=== PATIENT | female | born 1995 | race Caucasian/White ===

== ENCOUNTER → 2018-08-13 12:34 | Outpatient (CLI) | payer MEDICAID ==
[2018-08-13 13:28] LABS: APPEARANCE CLEAR (CLEAR); BILIRUBIN NEGATIVE (NEGATIVE); COLOR YELLOW (YELLOW); GLUCOSE NEGATIVE (NEGATIVE); KETONE NEGATIVE (NEGATIVE); NITRITE NEGATIVE (NEGATIVE); PROTEIN NEGATIVE (NEGATIVE); UROBILINOGEN NORMAL (NORMAL)
== END | disposition home or self-care (01) ==
LOC: D.LDO 12:34
PROVIDERS: ATTEND Obstetrics & Gynecology
DX: O26.899 Other specified pregnancy related conditions, unspecified trimester (principal); Z3A.00 Weeks of gestation of pregnancy not specified; R10.9 Unspecified abdominal pain

== ENCOUNTER → 2018-08-22 07:46 | Outpatient (CLI) | payer MEDICAID ==
[2018-08-22 08:34] LABS: APPEARANCE CLEAR (CLEAR); BILIRUBIN NEGATIVE (NEGATIVE); COLOR YELLOW (YELLOW); GLUCOSE NEGATIVE (NEGATIVE); KETONE NEGATIVE (NEGATIVE); NITRITE NEGATIVE (NEGATIVE); PROTEIN 1+ mg/dL (NEGATIVE); SPECIFIC GRAVITY 1.005 (1.005-1.020); UROBILINOGEN NORMAL (NORMAL)
[2018-08-22 08:36] LABS: BACTERIA MANY /hpf (NONE SEEN); EPITHELIAL CELLS 0-5 /hpf (0-5)
== END | disposition home or self-care (01) ==
LOC: D.LDO 07:46
PROVIDERS: ATTEND Obstetrics & Gynecology
DX: O26.892 Other specified pregnancy related conditions, second trimester (principal); Z3A.21 21 weeks gestation of pregnancy

== ENCOUNTER → 2018-12-17 14:04 | Outpatient (CLI) | payer MEDICAID ==
[~2018-12-17 14:04] MED LIST: BACTRIM 400-801 TAB PO; FERROUS SULFAT325 MG PO; PEPCID AC20 MG PO; PERCOCET 5-3251 TAB PO
[2018-12-17 14:33] LABS: BASOPHILS 0.1 % (0-2); EOSINOPHILS 0.4 % (0-7); HEMATOCRIT 27.8 % (36.0-48.0); IMMATURE GRANULOCYTES 0.1 % (0-5); LYMPHOCYTES 13.3 % (15-50); MCH 25.5 pg (26.0-34.0); MCHC 32.4 g/dL (31.0-37.0); MCV 78.8 fL (80.0-100.0); MEAN PLATELET VOLUME 11.9 fL (7.4-10.4); MONOCYTES 6.6 % (2-11); NEUTROPHILS 79.5 % (40-80); PLATELET COUNT 163 10x3/uL (130-400); RBC 3.53 10x6/uL (4.00-5.40); RDW 14.3 % (11.5-14.5); WBC 8.3 10x3/uL (4.8-10.8)
[2018-12-17 14:59] LABS: ALBUMIN 2.2 g/dL (3.4-5.0); ALKALINE PHOSPHATASE 149 U/L (46-116); ALT (SGPT) 12 U/L (10-68); BILIRUBIN - INDIRECT 0.16 mg/dL (0.00-1.00); CALC OSMOLALITY 277 mosm/kg (275-300); CALCIUM 7.9 mg/dL (8.5-10.1); CARBON DIOXIDE 24.4 mmol/L (21.0-32.0); CHLORIDE - SERUM 107 mmol/L (98-107); CREATININE - SERUM 0.7 mg/dL (0.6-1.3); GLUCOSE 103 mg/dL (74-106); POTASSIUM - SERUM 4.1 mmol/L (3.5-5.1); PROTEIN - SERUM 5.5 g/dL (6.4-8.2); SODIUM 140 mmol/L (136-145); UREA NITROGEN 11 mg/dL (7-18); URIC ACID 6.2 mg/dL (2.6-7.2); eGFR NON AFRICAN AMERICAN > 90 mL/min (90-120)
[2018-12-17 15:10] LABS: BILIRUBIN - DIRECT 0.04 mg/dL (0.00-0.30)
[2018-12-18 17:45] LABS: PROTEIN - URINE 27.6 mg/dL (0.0-11.9)
[2018-12-24 13:34] VITALS: BMI 34.4
== END | disposition home or self-care (01) ==
LOC: D.LDO 14:04
PROVIDERS: ATTEND Obstetrics & Gynecology
DX: O26.90 Pregnancy related conditions, unspecified, unspecified trimester (principal)

== ENCOUNTER 2018-12-24 12:59 | Inpatient (IN) | payer MEDICAID ==
[~2018-12-24] VITALS: Ht 157.5 cm; Wt 85.3 kg
[2018-12-24] MEDS ORDERED: FERROUS SULFAT325 MG PO (13:33)
[2018-12-24] MEDS ORDERED: PEPCID AC20 MG PO (13:33)
[2018-12-24 13:34] VITALS: BP 122/72; Ht 157.5 cm; Wt 85.3 kg
[2018-12-24 14:02] LABS: HEMATOCRIT 30.4 % (36.0-48.0); HEMOGLOBIN 9.7 g/dL (12-16); MCH 25.7 pg (26.0-34.0); MCHC 31.9 g/dL (31.0-37.0); MCV 80.6 fL (80.0-100.0); MEAN PLATELET VOLUME 12.1 fL (7.4-10.4); RBC 3.77 10x6/uL (4.00-5.40); RDW 14.5 % (11.5-14.5); WBC 10.6 10x3/uL (4.8-10.8)
[2018-12-25] VITALS (9 sets, daily range): BP systolic 110–125; BP diastolic 58–72
[2018-12-25 07:13] LABS: RAPID PLASMA REAGIN Non Reactive (Non Reactive)
--- NOTE | 2018-12-25 15:25 | NUR ---
PT FUDUS IS MIDLINE AND FIRM AT [facility]. BLEEDING IS SCANT RUBRA. WILL CONTINUE TO MONITOR
--- NOTE | 2018-12-25 16:15 | NUR ---
to room 1278 via bed from rr. pt awake and alert. color sl pale. verbal responses appro to questions. rates pain a 1-2 on scale of 0-10. states that med given in rr has helped alot. drinking on clear liq. vs done. iv of 1000cc lr with 10 units pitocin infusing and placed on pump at 125cc/hr. abd dressing intact- clean and dry. noted that pad from rr saturated - lochia -no clots. fundus massage -u1 and firm. no lochia with massage. able to moves legs about. ice cap to incision. bella cath with cloudy yellow urine- 100cc emptied from container. scd's on and connected to pump.
--- NOTE | 2018-12-25 16:32 | NUR ---
family at bedside. pt looking at cell phone.
--- NOTE | 2018-12-25 16:56 | NUR ---
rates pain a 1 on scale of 0-10. denies wanting pain med at this time. anjum pad without lochia. drinking clear liquids at this time.
--- NOTE | 2018-12-25 17:15 | NUR ---
fundus u1/firm. anjum pad cd&i. talking with visitors.
--- NOTE | 2018-12-25 17:35 | NUR ---
report of urine output to dr child -dr hardwick in unit- no new orders at this time.
--- NOTE | 2018-12-25 17:36 | NUR ---
requesting pain medication- rates pain a 3-4 on scale of 0-10.
--- NOTE | 2018-12-25 17:58 | NUR ---
baby to room. family at bedside.
--- NOTE | 2018-12-25 17:58 | NUR ---
small lochia noted on pad- fundus u1/firm.
--- NOTE | 2018-12-25 19:10 | NUR ---
REPORT TO PM SHIFT.
[2018-12-25 19:30] LABS: BASOPHILS 0.1 % (0-2); EOSINOPHILS 0 % (0-7); HEMOGLOBIN 7.8 g/dL (12-16); IMMATURE GRANULOCYTES 0.5 % (0-5); LYMPHOCYTES 2.9 % (15-50); MCH 25.4 pg (26.0-34.0); MCHC 31.2 g/dL (31.0-37.0); MCV 81.4 fL (80.0-100.0); MEAN PLATELET VOLUME 11.9 fL (7.4-10.4); MONOCYTES 5.7 % (2-11); NEUTROPHILS 90.8 % (40-80); PLATELET COUNT 168 10x3/uL (130-400); RBC 3.07 10x6/uL (4.00-5.40)
[2018-12-25 19:37] LABS: WBC 19.1 10x3/uL (4.8-10.8)
--- NOTE | 2018-12-25 20:00 | NUR ---
REC'D PT AA&O X 4 IN HIGH VELAZQUEZ'S. PAIN AND NEEDS ASSSESED. PT REPORTS PAIN 2/10. SHIFT ASSESSMENT COMPLETED. SEE FLOWSHEET.
--- NOTE | 2018-12-25 21:17 | NUR ---
DR. MOORE WAS CALLED AND INFORMED OF ORDERED H/H RESULTS THAT WERE ORDERED. INFORMED MD OF CURRENT RESULTS AND STATUS ON ADMIT. MD STATES NO FURTHER MANAGEMENT NEEDED AT THIS TIME.
--- NOTE | 2018-12-25 21:40 | NUR ---
THIS RN TO BEDSIDE TO ADMIN SCHEDULED TORADOL. PT AA&O X 4. RATES PAIN 05/10. PERIPAD W/SMALL LOCHIA NOTED. CLEAN PAD PLACED. [facility] MUG FILLED W/WATER AND PLACED AT BEDSIDE W/TEACHING. APPROX 50ML URINE NOTED IN UROMETER AT THIS TIME AND DUMPED TO AGEE BAG. PT DENIES NEEDS.
--- NOTE | 2018-12-25 22:04 | NUR ---
AMPICILLIAN 2GM UP TO INFUSE AT 200ML/HR.
--- NOTE | 2018-12-25 23:24 | NUR ---
PT RINGS CALL LIGHT TO REPORT IV PUMP SOUNDING. THIS RN TO BEDSIDE. APPROX 200ML REMAINING IN IV BAG. PUMP REPROGRAMMED. PT PAIN AND NEEDS ASSESED. PT REPORTS PAIN 04/09. DENIES NEEDS. PT HAS DRANK APPROX 200ML WAER. APPROX 75ML URINE NOTED IN UROMETER AND DUMPED. [facility] MUG REFILLED W/WATER AND PT ENCOURAGED TO CONTINUE DRINKING. PT AGREEBLE. NO NEEDS VOICED.
[2018-12-26 00:20] VITALS: BP 129/85
--- NOTE | 2018-12-26 00:30 | NUR ---
THIS RN TO BEDSIDE TO NORMALZIE PATIENT. AGEE CATH D/C'D INTACT. APPROX 80ML URINE NOTED IN UROMETER. PERIPAD W/SMALL LOCHIA CHANGED AND NEW PAD PLACED. PT CURRENTLY RATES ABD PRESSURE PAIN /. NS W/20 UNIT PITOCIN DISCONTINUED AT THIS TIME. BAG OF 1000ML NS UP TO INFUSE AT 100ML/HR. PT EDUCATED ON PO PAIN MEDICATION AND GETTING UP TO VOID AND AMBULATE. PT IS AGREEABLE. PT MEDICATED W/1 PERCOCET 5/325MG TAB AT THIS TIME. PT PERFORMS I.S X 3 WITH GOOD EFFORT AND REPOSITIONS SELF IN BED.PT COUGHS W/MODERATE EFFORT. DENIES NEEDS AT THIS TIME. ICE CAP REFRESHENED AND PLACED OVER INCISION SITE. [facility] MUG FILLED W/WATER AND PT ENCOURGED TO CONTINUE DRINKING.
--- NOTE | 2018-12-26 02:36 | NUR ---
LAB CALLS AND SPEAKS W/J BRYAN ORTA TO REPORT PT HAS GRAM (+) GLORIA BLOOD CULTURE FROM LEFT AC.
[2018-12-26 04:00] VITALS: BP 128/82
--- NOTE | 2018-12-26 04:00 | NUR ---
THIS RN TO BEDSIDE ADMIN OF AMPICILLIN PER ORDERS. PT AA&O X 4 HOLDING . PAIN AND NEEDS ASSESSED. PT REPORTS PAIN 2/10 AN DENIES NEEDS AT PRESENT. FOB TO FEED INFANT AT THIS TIME.
--- NOTE | 2018-12-26 04:13 | NUR ---
pt up to sitting on side of bed w/out assistance. ambulatory to br w/out assistance. able to void 400ml/hr. returns to bed. rates pain the same. 05/10. scd wraps placed back on pt's le's x 2. wraps remain connected to pump pump is on and functioning. pain med and ambulating teaching reviewed. pt denies needs at this time. bed low, side rails up x 2. call light at pt's side.
--- NOTE | 2018-12-26 05:30 | NUR ---
ROUNDS MADE. PT UP IN HIGH VELAZQUEZ'S AA&O X 4. HOLDING . PAIN AND NEEDS ASSESSSED. PT REPORTS PAIN "IS THE SAME". 05/10. DENIES NEEDS AT PRESENT. PT HAS DRANK APPROX 250ML OF WATER SERVED. [facility] MUG REFILLED W/FRESH ICE WATER.
[2018-12-26 06:44] LABS: BASOPHILS 0.1 % (0-2); EOSINOPHILS 0.2 % (0-7); HEMATOCRIT 22.7 % (36.0-48.0); IMMATURE GRANULOCYTES 0.3 % (0-5); LYMPHOCYTES 6.6 % (15-50); MCH 26.1 pg (26.0-34.0); MCHC 32.2 g/dL (31.0-37.0); MCV 81.1 fL (80.0-100.0); MEAN PLATELET VOLUME 11.6 fL (7.4-10.4); MONOCYTES 5.3 % (2-11); NEUTROPHILS 87.5 % (40-80); PLATELET COUNT 137 10x3/uL (130-400)
[2018-12-26 06:47] LABS: HEMOGLOBIN 7.3 g/dL (12-16); WBC 13.6 10x3/uL (4.8-10.8)
[2018-12-26 07:27] VITALS: BP 122/62
--- NOTE | 2018-12-26 07:42 | NUR ---
ASSESSMENT COMPLETED, PT C/O PAIN RATED 3/10 ON NUMERIC PAIN SCALE, PRN MED GIVEN WITH SIPS WATER. ASSISTED OOB TO BR, VOIDED 700ML URINE WITHOUT DIFFICULTY, DENIES DIZZINESS OR SOB WHILE AMBULATORY, LUNGS CTAB, HEART RRR RATE OF 98, RESP EVEN AND UNLABORED, ABD SOFT AND MILDLY TENDER, ICE PACK OVERLAY TO DRESSING TO LOW ABDOMEN, NARAYAN FREELY, NEGATIVE MICHELA'S SIGN B LE, PEDAL EDEMA 1-2+ B AND PITTING. SCD'S ON AND FUNCTIONING WHILE IN BED. IV TO RIGHT WRIST PATIENT AND BENIGN TO INSPECTION. BREAKFAST TRAY TO PT, ASSISTED TO COMFORT. WILL MONITOR.
--- NOTE | 2018-12-26 07:45 | NUR ---
PAGED DR MOORE WITH IMMEDIATE CALL BACK; REVIEWED MOST RECENT CBC RESULTS WITH ORDER RECEIVED TO TRANSFUSE 1 UNIT PRBCS, VERIFIED VIA TORB. RELAYED INFORMATION TO PT WHO STATES UNDERSTANDING. WILL NOTIFY LAB.
--- NOTE | 2018-12-26 08:32 | NUR ---
pain reassessment completed, denies pain, one unit prbc infusing per md orders at this time with this rn at bs. pt denies needs/concerns. will monitor.
[2018-12-26 09:41] VITALS: BP 126/76
--- NOTE | 2018-12-26 09:41 | NUR ---
ONE UNIT PRBC INFUSED PER FACILITY PROTOCOL, VSS, AFEBRILE, DENIES QUIROGA, BACK PAIN, PALPITATIONS, RESP EVEN AND UNLABORED, DENIES NEEDS OR CONCERNS. WILL MONITOR.
--- NOTE | 2018-12-26 10:00 | NUR ---
DR MOORE IN TO SEE PT, ABD DRESSING REMOVED, INCISION CDI WITH DERMABOND. NO REDNESS, WARM, DEHISCENCE, OR SWELLING NOTED. WILL MONITOR. CALL LIGHT IN EASY REACH. CUP OF ICE WATER PROVIDED UPON REQUEST.
--- NOTE | 2018-12-26 10:27 | NUR ---
FAMILY AND FRIENDS VISITING TO PT ROOM, PT DENIES NEEDS OR CONCERNS ON ROUNDS, RESP EVEN AND UNLABORED, CALL LIGHT IN EASY REACH. CONTINUE TO MONITOR.
--- NOTE | 2018-12-26 11:30 | NUR ---
PT OOB TO BR TO VOID, AMBULATORY IN HALLS WITHOUT DIFFICULTY, RESP EVEN AND UNLABORED. CALL LIGHT IN EASY REACH. WILL MONITOR.
--- NOTE | 2018-12-26 12:20 | NUR ---
REGULAR DIET SERVED TO PT FOR LUNCH, SPOUSE AT BS, NO NEEDS VOICED AT THIS TIME, WILL MONITOR.
--- NOTE | 2018-12-26 13:26 | NUR ---
PT C/O ABD PAIN AND CRAMPING, REQUESTS PRN MEDS, MOTRIN AND PERCOCET 5/325 MG TABS GIVEN WITH SIPS WATER, CUP OF ICE WATER PROVIDED, DENIES OTHER NEEDS, INFANT IN ARMS, BONDING NOTED. CALL LIGHT IN EASY REACH.
[2018-12-26 15:00] VITALS: BP 119/66
--- NOTE | 2018-12-26 15:15 | NUR ---
NOTIFIED DR MOORE OF ELEVATED TEMP ON VITAL SIGN CHECK AT 1500. ORDERS RECEIVED TO REPEAT BLOOD CULTURES X2, VERIFIED VIA TORB. STATES WILL CALL BACK WITH ADDITIONAL ORDERS PRN.
--- NOTE | 2018-12-26 17:05 | NUR ---
ROUNDS COMPLETED, PT SITTING IN DARKENED ROOM, DENIES NEEDS OR CONCERNS, TOLERATING PO WELL, VOIDING WITHOUT DIFFICULTY, CALL LIGHT IN EASY REACH. CONTINUE TO MONITOR.
--- NOTE | 2018-12-26 18:02 | NUR ---
ROUNDS COMPLETED, IVPB GENTAMYCIN HUNG AND PT PROVIDED CUP OF ICE WATER PER REQUEST. DENIES C/O PAIN ON INQUIRY AND IN PT ARMS AT THIS TIME, SIGNIFICANT OTHER ALSO IN ROOM. CALL LIGHT IN EASY REACH, CONTINUE TO MONITOR.
--- NOTE | 2018-12-26 19:09 | NUR ---
pt rec'd in bed at this time. with family at bedside. denies needs at this time. beside shift reporting completed. edilberto parham rn
--- NOTE | 2018-12-26 19:45 | NUR ---
PT REC'D IN BED AT THIS TIME. FEEDING INFANT. IV SITE REMAINS PATENT AND INFUSING AT 75 ML/HR. NO DISTRESS NOTED. NO NEEDS VOICED. Marcos VAIL RN
[2018-12-26 20:08] VITALS: BP 129/75
--- NOTE | 2018-12-26 20:08 | NUR ---
PT REC'D IN BED AT THIS TIME. RATES PAIN AT A 3/10 ON PAIN SCALE. IV OF NS INFUSING TO THE RT HAND AT 75 ML/HR. STIE CELAR AND PATENT. LUNGS CLEAR. BS+. PT STATES THAT SHE IS PASSING FLATUS. INCISION INTACT WITH SURGICAL GLUE. NO S/S OF INFECTION NOTED. PT VOIDING AND TOLERATING A REGULAR DIET AT THIS TIME. SOME SWELLING NOTED TO HANDS AND FEET. NO ACUTE DISTRESS NOTED. SIDERAILS UP FOR SAFETY X2 CALL LIGHT IN PT ERACH. SPOUSE AT [facility] AND SUPPORTIVE. Marcos VAIL, RN
--- NOTE | 2018-12-26 20:14 | NUR ---
PT MEDICATED WITH MOTRIN 600 FOR PAIN LEVEL OF 3. L YOU VAIL
--- NOTE | 2018-12-26 21:01 | NUR ---
PT STATES PAIN IS A 0/10 AT THIS TIME. WILL CONTINUE TO MONITOR. Marcos VAIL RN
--- NOTE | 2018-12-26 22:14 | NUR ---
AMPICILLIN 2 GRAMS UP AT THIS TIME. NEW BAG OF NS UP AT 2200. L GENNA RN
--- NOTE | 2018-12-27 00:30 | NUR ---
PT RESTING AT THIS TIME WITHOUT COMPLAINTS. Marcos VAIL RN
--- NOTE | 2018-12-27 01:36 | NUR ---
GENTAMICIN UP AT THIS TIME. PT RESTING WELL WITHOUT COMPLAINTS. VSS. Marcos VAIL RN
[2018-12-27 01:41] VITALS: BP 124/81
--- NOTE | 2018-12-27 03:40 | NUR ---
PT. CALLED REQUESTING PAIN MED FOR A PAIN SCORE OF A 3 OF 10.
--- NOTE | 2018-12-27 04:10 | NUR ---
AMPICILLIN UP VIA IVPB. PT RESTING. DENIES NEEDS/PAIN. Marcos VAIL, RN
[2018-12-27 05:26] VITALS: BP 119/64
--- NOTE | 2018-12-27 05:27 | NUR ---
PT REC'D IN BED AT THIS TIME ASLEEP AT THIS TIME. VITAL SIGNS STABLE AT THIS TIME. AFEBRILE THIS SHIFT. NO ACUTE DISTRESS NOTED. Marcos VAIL RN
[2018-12-27 06:37] LABS: BASOPHILS 0.1 % (0-2); EOSINOPHILS 0.6 % (0-7); HEMATOCRIT 24.7 % (36.0-48.0); HEMOGLOBIN 7.9 g/dL (12-16); IMMATURE GRANULOCYTES 0.2 % (0-5); LYMPHOCYTES 7.4 % (15-50); MCH 26.2 pg (26.0-34.0); MCV 81.8 fL (80.0-100.0); MEAN PLATELET VOLUME 10.7 fL (7.4-10.4); MONOCYTES 7.8 % (2-11); NEUTROPHILS 83.9 % (40-80); PLATELET COUNT 144 10x3/uL (130-400); RBC 3.02 10x6/uL (4.00-5.40); RDW 15.4 % (11.5-14.5)
[2018-12-27 06:39] LABS: WBC 9.7 10x3/uL (4.8-10.8)
[2018-12-27 07:27] VITALS: BP 133/86
--- NOTE | 2018-12-27 07:27 | NUR ---
RECEIVED PT SITTING UP IN BED. AWAKE. VSS. HRRR WITHOUT AUDIBLE MURMUR. BBS CLEAR. BS X 4. ABDOMEN SOFT/SLIGHTLY DISTENDED. FUNDUS FIRM AT U/1. RUBRA LOCHIA SMALL AMT. PT DENIES HEAVY BLEEDING OR PASSING CLOTS. ABDOMINAL INCISION WITHOUT REDNESS, SWELLING OR DRAINAGE NOTED. NEG HOMANS' SIGN. PPP. 1+/1+ PITTING EDEMA NOTED TO BLE. PT STATES INCISIONAL PAIN OF "1" ON 0-10 PAIN SCALE. STATES "SORE". PT REQUESTS AND RECEIVES ICE WATER. STATES PASSING GAS. DENIES HAVING BM SINCE DELIVERY. DENIES URINARY SYMPTOMS. SL TO RIGHT HAND. SITE CLEAR. PT UCHE WELL. SR UP X 2. CALL LIGHT IN REACH.
--- NOTE | 2018-12-27 09:20 | NUR ---
DR MOORE VISITS WITH PT.
--- NOTE | 2018-12-27 09:48 | NUR ---
PT C/O INCISIONAL PAIN OF "3" ON 0-10 PAIN SCALE. MOTRIN 600 MG AND PERCOCET 5/325 GIVEN PO ORDERED. PT INSTRUCTED ON MEDS. VERBALIZES UNDERSTANDING.
--- NOTE | 2018-12-27 10:01 | NUR ---
SL FLUSHES EASILY WITH 10 ML NS. SITE CLEAR. GENTAMYCIN 120 MG STARTED IVPB VIA ALARIS PUMP. PT UCHE WELL.
--- NOTE | 2018-12-27 11:03 | NUR ---
GENTAMYCIN COMPLETED. AMPICILLIN 2 GRAMS UP AT THIS TIME. PIV SITE CLEAR. PT DENIES NEEDS OR C/O.
--- NOTE | 2018-12-27 13:03 | NUR ---
PT OOB AND AMB TO BR TO SHOWER. BED LINENS CHANGED.
--- NOTE | 2018-12-27 13:40 | NUR ---
PT SITTING UP IN BED. STATES TOLERATED SHOWER WELL. DENIES C/O OR NEEDS.
--- NOTE | 2018-12-27 14:26 | NUR ---
PT AMBULATORY WITH SO IN [place]. TOLERATING ACTIVITY WELL.
--- NOTE | 2018-12-27 15:22 | NUR ---
PT C/O INCISIONAL PAIN OF "2" ON 0-10 PAIN SCALE. MOTRIN 600 MG AND PERCOCET 5/325 GIVEN PO ORDERED. PT INSTRUCTED ON MEDS. VERBALIZES UNDERSTANDING.
[2018-12-27 16:30] VITALS: BP 135/82
--- NOTE | 2018-12-27 16:32 | NUR ---
SL FLUSHES EASILY WITH 10 ML NS. SITE CLEAR. AMPICILLIN 2 GRAMS UP AT THIS TIME VIA ALARIS PUMP. VSS. ABDOMINAL INCISION WITHOUT REDNESS, SWELLING OR DRAINAGE NOTED. PT DENIES PAIN.
--- NOTE | 2018-12-27 18:00 | NUR ---
SL FLUSHES EASILY WITH 10 ML NS. GENTAMYCIN 120 MG UP VIA ALARIS PUMP. PIV SITE CLEAR. PT TOLERATING WELL.
--- NOTE | 2018-12-27 19:11 | NUR ---
PT REC'D IN BED AT THIS TIME. WITH FAMILY AT SIDE. GENTAMICIN COMPLETED AT THIS TIME. SITE TO RT HAND CLEAR AND PATENT. NO DISTRESS NOTED. NO PAIN VERBALIZED. IV SALINE LOCKED. NO NEEDS VERBALIZED. Marcos VAIL RN
--- NOTE | 2018-12-27 19:18 | NUR ---
PT AMBULATING IN HALLWAYS AT [facility]. PT TOLERATING WELL. Marcos VAIL RN
[2018-12-27 20:01] VITALS: BP 125/67
--- NOTE | 2018-12-27 20:01 | NUR ---
PT REC'D IN BED. DENIES PAIN. SALINE LOCK INTACT TO THE RT HAND. LUNGS CLEAR. BS+. INCISION INTACT WITHOUT S/S OF INFECTION NOTED. PT VOIDING WITHOUT DIFFICULTY. AFEBRILE. SIDERAILS UP FOR SAFETY. CALL LIGHT IN PT REACH. Marcos VAIL RN
--- NOTE | 2018-12-27 21:31 | NUR ---
PT MEDICATED WITH IBUPROFEN AND PERCOCET FOR PAIN LEVEL OF 2. WILL CONTINUE TO MONITOR. Marcos VAIL RN
--- NOTE | 2018-12-27 22:27 | NUR ---
AMPICILLIN 2 GRAMS UP AT THIS TIME. PT VERBALIZES NO PAIN. WILL CONTINE TO MONITOR. Marcos VAIL RN
[2018-12-28 00:22] VITALS: BP 124/76
--- NOTE | 2018-12-28 00:22 | NUR ---
PT RESTING AT THIS TIME. DENIES PAIN. Marcos VAIL RN
--- NOTE | 2018-12-28 03:10 | NUR ---
SCHEDULED GENT HUNG TO INFUSE OVER 60 MINUTES VIA PUMP PER ORDER TO RIGHT HAND PIV. NO S/S OF INFILTRATION NOTED. HOLDING IN ARMS. DENIES NEEDS. BED IN LOW POSITION WITH UPPER SIDE RAILS RAISED X2. CALL LIGHT AND PHONE WITHIN REACH. WILL CONTINUE TO MONITOR.
--- NOTE | 2018-12-28 04:39 | NUR ---
GENTAMYCIN INFUSION COMPLETED, RT HAND PIV SL. NO S/S OF INFILTRATION NOTED. DENIES NEEDS. REMAINS IN ROOM AT BEDSIDE IN OPEN CRIB. WILL CONTINUE TO MONITOR.
--- NOTE | 2018-12-28 04:44 | NUR ---
AMPICILLIN UP AT THIS TIME SCHEDULED. Marcos VAIL RN
[2018-12-28 05:25] VITALS: BP 120/73
--- NOTE | 2018-12-28 05:25 | NUR ---
[facility] DENIES PAIN. AFEBRILE THIS SHIFRNelly VAIL RN
[2018-12-28 08:43] VITALS: BP 134/82
--- NOTE | 2018-12-28 08:43 | NUR ---
THIS RN TO ROOM FOR SHIFT ASSESSMENT. PT SITTING UP IN BED, AAOx2, RATING PAIN 1 AT REST BUT APPROX 6/10. REQUESTING TO HAVE HER PERCOCET AND MOTRIN. PT ALSO REQUESTS STOOL SOFTENER AFTER DISCUSSING SIDE EFFECT OF CONSTIPATION WITH PEROCOCET. WILL ADMIN MEDS ORDERED. PIV TO RIGHT HAND IS C/D/I. NO SIGNS OF PHLEBITIS. FF, ML, U/2. SMALL RUBRA LOCHIA, NO CLOTS. INCISION IS C/D WITH DERMABOND INTACT. GENERALIZED 1+ EDEMA TO LE AND UE BILAT, NON-PITTING. POC DISCUSSED WITH PT. UNDERSTANDING VERBALIZED. PT STATES SHE SHOWERED YESTERDAY AND DOES NOT NEED LINENS CHANGED AT THIS TIME. SRUx2, CL IN REACH. WILL CONT TO MONITOR.
--- NOTE | 2018-12-28 09:00 | NUR ---
MEDS ADMIN ORDERED, SEE EMAR FOR DOC.
--- NOTE | 2018-12-28 11:16 | NUR ---
THIS RN TO ROOM FOR ANTIBIOTIC ADMIN, SEE EMAR FOR DOC. PT PROVIDED WITH FRESH ICE WATER, DENIES NEEDS. SRUx2, CL IN REACH. WILL CONT TO MONITOR.
[2018-12-28 12:49] VITALS: BP 139/82
--- NOTE | 2018-12-28 12:49 | NUR ---
THIS RN TO ROOM FOR ANTIBIOTIC ADMIN, SEE EMAR FOR DOC. VSS, SEE FLOWSHEET FOR DOC, PT REMAINS AFEBRILE. PT PROVIDED WITH PADS AND PANTIES PER REQUEST, DENIES FURTHER NEEDS. LYDIA Kinney IN REACH. WILL CONT TO MONITOR.
[2018-12-28] MEDS ORDERED: PERCOCET 5-3251 TAB PO (14:53)
[2018-12-28] MEDS ORDERED: BACTRIM 400-801 TAB PO (14:53)
--- NOTE | 2018-12-28 15:22 | NUR ---
THIS RN TO ROOM TO COMPLETE DISCHARGE FOLLOWING NURSERY'S D/C TEACHING ON . RIGHT HAND PIV D/C'D WITHOUT INCIDENT, PRESSURE HELD AND BANDAID APPLIED. PT GIVEN WRITTEN PRESCRIPTIONS PROVIDED BY DR REYES FOR DISCHARGE. PT INSTRUCTED ON MEDICATIONS, VERBALIZES UNDERSTANDING. PT GIVEN DISCHARGE INSTRUCTIONS, WRITTEN AND VERBAL. PT VERBALIZES UNDERSTANDING AND DENIES QUESTIONS, SIGNS CHART COPIES. PT INSTRUCTED SHE MAY DRESS FOR D/C TO HOME, BUCKLE INFANT IN [place], AND CALL COUNTER CUTTER LIGHT TO NOTIFY RN WHEN SHE IS READY FOR W/C OUT. UNDERSTANDING VERBALIZED.
--- NOTE | 2018-12-28 15:55 | NUR ---
PT TAKEN OFF UNIT VIA W/C TO PRIVATE VEHICLE WITH , SIG OTHER TO DRIVE HOME.
--- NOTE | 2019-01-04 13:13 | OP ---
PATIENT NAME: SRI MARINO MEDICAL RECORD: [id number] :97 LOCATION:[facility] D.1278 ADMISSION DATE:12/24/18 SURGEON: DULCE MARIA REYES DO DATE OF OPERATION: 12/25/2018 PREOPERATIVE DIAGNOSES: 1. Failure to progress. 2. Chorioamnionitis. POSTOPERATIVE DIAGNOSES: 1. Failure to progress. 2. Chorioamnionitis. PRIMARY SURGEON: Dulce Maria Reyes DO ANESTHESIA: BJ Samantha. PROCEDURE: Primary low transverse section via Pfannenstiel incision. FINDINGS: Viable female , weight 7 pounds 11.8 ounces, Apgars 9 and 9, delivered at 1426. Normal appearing uterus, bilateral fallopian tubes, bilateral ovaries. SPECIMENS: Placenta and cord. ESTIMATED BLOOD: 1 liter. IV FLUIDS: 2200 cc. URINE OUTPUT: 300 cc clear urine. COMPLICATIONS: Uterus, boggy with 20 milliunits of Pitocin 10 extra units of Pitocin added to the IV fluid with improvement and the uterus was firm. PROCEDURE: The risks, benefits, alternatives, and indications of the procedure were discussed with the patient. She voiced understanding of the procedure and wished to proceed. She was taken to the OR where spinal anesthesia was administered and found to be adequate. She was placed in the dorsal supine position with a leftward tilt. She was prepped and draped in the normal sterile fashion. A Pfannenstiel skin incision was made with a scalpel and carried down to the underlying layer of the fascia. The fascia was incised in the midline and extended laterally and the inferior aspect of the fascia incision was dissected off the rectus muscle via blunt dissection. Attention was then turned to the superior aspect of the fascial incision. The rectus muscle was dissected off bluntly as well. The rectus muscles were down the midline. The peritoneum was identified and noted to be free of adherent bowel and entered bluntly. The peritoneum was further with gentle traction. The bladder blade was inserted and the uterus incision was made in the lower uterine segment with a scalpel. Incision was extended with lateral and upward traction. The 's head was brought to the incision and the delivered without difficulty. Mouth and nose were suctioned. Cord was clamped and cut. The infant was handed off to waiting pediatricians. The placenta was manually removed. The uterus was exteriorized and a moist lap was used to assure complete removal of placental membranes. The hysterotomy was closed with 0 Vicryl in a running locked fashion with double layer closure with good OPERATIVE REPORT [id number] SRI MARINO hemostasis. The uterus, tubes, and ovaries were noted to be normal and returned back to the abdominal cavity. A moist laparotomy sponge was used to assure complete removal of blood clots and fluid from the abdominal cavity. The hysterotomy was reinspected and noted to be hemostatic. The fascial incision was closed with 0 Vicryl in a running fashion with good hemostasis. The rectus muscle was closed with 2-0 Monocryl in a running fashion with good hemostasis. The fascial incision was closed with 0 Vicryl in a running fashion with good hemostasis. The subcutaneous fat was closed with 2-0 plain in a running fashion with good hemostasis. The skin was closed in a subcuticular fashion with 3-0 Monocryl with good hemostasis and Dermabond covering. All needle, lap, sponge, and instrument counts were correct times 2. The patient tolerated the procedure well. She was taken to the recovery room in stable condition. TRANSINT:[id number] Voice Confirmation ID: [id number] DOCUMENT ID: [id number] DULCE MARIA REYES DO at 1313 CC: [id number] DICTATION DATE: 12/25/18 1523 EMERGENCY GENERATOR MECHANIC: 12/26/18 0154 DIS IN 12/28/18 [facility] [address] [place] [address]
== END 2018-12-28 15:55 | disposition home or self-care (01) | DRG 786 ==
LOC: D.LD 12:59
PROVIDERS: Obstetrics & Gynecology; Student in an Organized Health Care Education/Training Program; ADMIT Obstetrics & Gynecology; ATTEND Obstetrics & Gynecology
PROC: 3E0P7VZ Introduction of Hormone into Female Reproductive, Via Natural or Artificial Opening (ICD-10-PCS; 2018-12-24)
PROC: 10907ZC Drainage of Amniotic Fluid, Therapeutic from Products of Conception, Via Natural or Artificial Opening (ICD-10-PCS; 2018-12-24)
PROC: 3E033VJ Introduction of Other Hormone into Peripheral Vein, Percutaneous Approach (ICD-10-PCS; 2018-12-24)
PROC: 10D00Z1 Extraction of Products of Conception, Low, Open Approach (ICD-10-PCS; principal; 2018-12-25 13:00)
DX: O13.4 Gestational [pregnancy-induced] hypertension without significant proteinuria, complicating childbirth (principal); O41.1230 Chorioamnionitis, third trimester, not applicable or unspecified; Z3A.38 38 weeks gestation of pregnancy; Z37.0 Single live birth; O75.3 Other infection during labor; O62.1 Secondary uterine inertia; O90.81 Anemia of the puerperium